=== PATIENT | female | born 1985 | race American Indian/Alaskan Native ===

== ENCOUNTER 2018-06-02 18:28 | Emergency (ER) | payer MEDICARE ==
[2018-06-02 19:37] VITALS: BP 136/89
== END 2018-06-02 21:50 | disposition left against medical advice (07) ==
LOC: ED 18:28
DX: K08.89 Other specified disorders of teeth and supporting structures (principal); Z53.21 Procedure and treatment not carried out due to patient leaving prior to being seen by health care provider

== ENCOUNTER 2018-08-06 14:35 | Emergency (ER) | payer MEDICARE ==
--- NOTE | 2018-08-06 15:39 | Emergency Department Report ---
ED Rash HPI - HPI Chief Complaint: Skin Rash Stated Complaint: RASH SCABBIES/HEADACHE/PAIN Time Seen by Provider: 08/06/18 15:03 Duration: 2 Days Location: Neck, Back, Abdomen, Upper Extremities, Lower Extremities Suspected Cause: Unknown Rash Symptoms: Yes Itching, Yes Myalgias (room), No Facial Swelling, No Tongue/Oral Swelling, No Breathing Difficulties, No Choking Sensation, No Wheezing/Dyspnea, No Peeling, No Blistering, No Fever, No Lightheaded, No Malaise Severity: moderate Other History: scabies exposure ED Review of Systems ROS: Stated complaint: RASH SCABBIES/HEADACHE/PAIN Other details as noted in HPI Constitutional: denies: chills, fever Eyes: denies: eye pain, eye discharge, vision change ENT: denies: ear pain, throat pain Respiratory: denies: cough, shortness of breath, wheezing Cardiovascular: denies: chest pain, palpitations Endocrine: no symptoms reported Gastrointestinal: denies: abdominal pain, nausea, diarrhea Genitourinary: denies: urgency, dysuria, discharge Musculoskeletal: denies: back pain, joint swelling, arthralgia Skin: rash Neurological: denies: headache, weakness, paresthesias Psychiatric: denies: anxiety, depression Hematological/Lymphatic: denies: easy bleeding, easy bruising ED Past Medical Hx - Past Medical History Hx Hypertension: Yes Hx Headaches / Migraines: Yes - Social History Smoking Status: Never Smoker Substance Use Type: None - Medications Home Medications: Home Medications Medication Instructions Recorded Confirmed Last Taken Type Docusate Sodium [Colace] 100 mg PO BID PRN #60 capsule 05/09/18 Unknown Rx Lactulose 10 gm PO DAILY PRN #150 ml 05/09/18 Unknown Rx NIFEdipine [Adalat cc] 30 mg PO DAILY #30 tablet.er 05/09/18 Unknown Rx Diphenhydramine HCl [Benadryl GEL] 118 ml TP QID PRN #1 bottle 08/06/18 Unknown Rx Permethrin 5% [Acticin 5% CREAM] 1 applicatio TP ONCE #1 tube 08/06/18 Unknown Rx diphenhydrAMINE [Benadryl CAP] 25 mg PO Q6HR PRN #30 capsule 08/06/18 Unknown Rx Rash Exam - Exam General: Vital signs noted. No distress. Alert and acting appropriately. HEENT: No Periorbital Edema, No Conjuctival Injection, No Chemosis, No Perioral Edema, No Tongue Edema, No Uvular Edema, No Compromised Airway, No Drooling Lungs: Yes Good Air Exchange (Normal Breath Sounds), No Wheezes, No Ronchi, No Stridor, No Cough, No Labored Respirations, No Retractions, No Use of Accessory Muscles, No Other Abnormal Lung Sounds Heart: Yes Regular, No Murmur Skin: Yes Urticarial Rash, Yes Maculopapular Rash, Yes Excoriations, Yes Erythema, Yes Encrustations, No Morbilliform rash, No Bulla(e), No Weeping, No Tenderness, No Edema Other: Positive: Abdomen Normal, Neurologic Normal, Musculoskeletal Normal ED Course Vital Signs 08/06/18 15:32 Pulse Rate 66 Respiratory 18 Rate Blood Pressure 115/70 [Right] O2 Sat by Pulse 99 Oximetry ED Medical Decision Making - Medical Decision Making pt rash constistent with scabies infestation. confirmed scabies with child plan permethrine cream , laundry linen, and mattress care pt verbalized agreement and understanding of same Critical care attestation.: If time is entered above; I have spent that time in minutes in the direct care of this critically ill patient, excluding procedure time. ED Disposition Clinical Impression: Scabies infestation Disposition: - TO HOME OR SELFCARE Is pt being admited?: No Does the pt Need Aspirin: No Condition: Stable Instructions: Scabies (ED) Prescriptions: Permethrin 5% [Acticin 5% CREAM] 1 applicatio TP ONCE #1 tube diphenhydrAMINE [Benadryl CAP] 25 mg PO Q6HR PRN #30 capsule PRN Reason: Itching Diphenhydramine HCl [Benadryl GEL] 118 ml TP QID PRN #1 bottle PRN Reason: Itching Referrals: SERGIO GANDHI MD [Primary Care Provider] - 3-5 Days Forms: Work/School Release Form(ED) Time of Disposition: 15:39
[2018-08-06 15:53] VITALS: BP 115/70
== END 2018-08-06 15:35 | disposition home or self-care (01) ==
LOC: ED 14:35
DX: B86 Scabies (principal); I10 Essential (primary) hypertension; G43.909 Migraine, unspecified, not intractable, without status migrainosus
CPT/HCPCS: 99282

== ENCOUNTER 2018-08-21 18:30 | Emergency (ER) | payer MEDICARE ==
[2018-08-21 18:41] VITALS: BP 122/89
--- NOTE | 2018-08-21 18:49 | Emergency Department Report ---
Blank Doc - Documentation Documentation: headache and acid reflux reflux. Suppose to prescription for acid reflux but h ave not started yet. Medication prescribed here. Headache on both sides of head. Tension. Blurred vision. SCHROEDER ongoing for 5 days. Previous was not as bad. LMP 08/09/2018. Mini Neuro- alert and oriented x 3, nad. facial symmetry. nl gate . nl speech. GCS 15 CV- RR. A/P Headache dyspepsia CT scan head urine ua,
[2018-08-21 20:31] LABS: Bacteria,Urine 1+ /HPF (Negative); Bilirubin,Urine NEG (Negative); Blood,Urine NEG (Negative); Color,Urine Yellow (Yellow); Mucus,Urine 3+ /HPF; Urobilinogen,Urine < 2.0 mg/dL (<2.0)
[2018-08-21 20:35] LABS: HCG Qualitative,Urine Negative (Negative)
[2018-08-21] MEDS ORDERED: ALUM-MAG HYDROX-SIMETH 200-200-20MG/5ML PO ONE (20:39)
[2018-08-21] MEDS ORDERED: PEPCID PO ONE (20:39)
[2018-08-21] MEDS ORDERED: TORADOL IM ONE (20:39)
[2018-08-21] MEDS ORDERED: LIDOCAINE VISCOUS 2% PO ONE (20:39)
--- NOTE | 2018-08-21 21:10 | Emergency Department Report ---
ED Headache HPI - General Chief Complaint: Headache Stated Complaint: HEADACHE/CHEST PAIN/HYPERTENSION/ACID REFLUX Time Seen by Provider: 08/21/18 18:43 Source: patient Exam Limitations: no limitations - History of Present Illness Timing/Duration: waxing and waning Quality: mild Head Injury Location: global Recent Head Trauma: no recent headache/trauma Modifying Factors: worse with: cold therapy, exposure to light, immobilization, medication, movement, rest, other Associated Symptoms: denies: denies symptoms, confusion, fatigue, facial pain, fever/chills, flushing, loss of consciousness, nausea/vomiting, nasal congestion, nasal drainage, numbness in legs/feet, rash, seizures, sinus infection, stiff neck, vision changes, weakness, other Allergies/Adverse Reactions: Allergies No Known Allergies Allergy (Unverified 05/08/18 21:57) Home Medications: Ambulatory Orders Butalb/Acetaminophen/Caffeine [Fioricet 50-300-40 mg CAP] 1 cap PO Q8HR PRN #10 cap 08/21/18 ED Review of Systems ROS: Stated complaint: HEADACHE/CHEST PAIN/HYPERTENSION/ACID REFLUX Other details as noted in HPI Comment: All other systems reviewed and negative Constitutional: denies: chills Eyes: denies: as per HPI Respiratory: denies: see HPI Cardiovascular: denies: palpitations Endocrine: denies: excessive sweating Gastrointestinal: denies: nausea Genitourinary: denies: urgency Musculoskeletal: denies: back pain Skin: denies: lesions Neurological: as per HPI, headache Psychiatric: denies: anxiety Hematological/Lymphatic: denies: easy bleeding ED Past Medical Hx - Past Medical History Previous Medical History?: Yes Hx Hypertension: Yes Hx GERD: Yes Hx Headaches / Migraines: Yes - Surgical History Past Surgical History?: No - Family History Family history: no significant - Social History Smoking Status: Never Smoker Substance Use Type: None - Medications Home Medications: Home Medications Medication Instructions Recorded Confirmed Last Taken Type Butalb/Acetaminophen/Caffeine 1 cap PO Q8HR PRN #10 cap 08/21/18 Unknown Rx [Fioricet 50-300-40 mg CAP] ED Physical Exam - General Limitations: No Limitations General appearance: alert, in no apparent distress - Head Head exam: Present: atraumatic, normocephalic - Eye Eye exam: Present: normal appearance, PERRL - ENT ENT exam: Present: mucous membranes moist - Neck Neck exam: Present: normal inspection - Respiratory Respiratory exam: Present: normal lung sounds bilaterally - Cardiovascular Cardiovascular Exam: Present: regular rate - GI/Abdominal GI/Abdominal exam: Present: soft, normal bowel sounds - Rectal Rectal exam: Present: deferred - Extremities Exam Extremities exam: Present: normal inspection, full ROM - Back Exam Back exam: Present: normal inspection, full ROM - Neurological Exam Neurological exam: Present: alert, oriented X3, CN II-XII intact, normal gait, reflexes normal. Absent: abnormal gait, motor sensory deficit - Psychiatric Psychiatric exam: Present: normal affect, normal mood - Skin Skin exam: Present: warm, dry, intact ED Course Vital Signs 08/21/18 18:40 Temperature 98.2 F Pulse Rate 75 Respiratory 18 Rate Blood Pressure 122/89 O2 Sat by Pulse 100 Oximetry ED Medical Decision Making - Radiology Data Radiology results: report reviewed, image reviewed CT NAP - Medical Decision Making CT NEG MEDICATED WITH RELIEF IN ER PLAYING ON PHONE ENTIRE ER STAY WILL DC HOME WITH NEURO FOLLOW UP Vital Signs 08/21/18 18:40 Temperature 98.2 F Pulse Rate 75 Respiratory 18 Rate Blood Pressure 122/89 O2 Sat by Pulse 100 Oximetry Labs 08/21/18 19:19 Urine Color Yellow Urine Turbidity Slightly-cloudy Urine pH 6.0 Ur Specific Cameron 1.035 H Urine Protein 100 mg/dl Urine Glucose (UA) Neg Urine Ketones Neg Urine Blood Neg Urine Nitrite Neg Urine Bilirubin Neg Urine Urobilinogen < 2.0 Ur Leukocyte Esterase Neg Urine WBC (Auto) 1.0 Urine RBC (Auto) 3.0 U Epithel Cells (Auto) 14.0 H Urine Bacteria (Auto) 1+ Urine Mucus 3+ Urine HCG, Qual Negative Critical care attestation.: If time is entered above; I have spent that time in minutes in the direct care of this critically ill patient, excluding procedure time. ED Disposition Clinical Impression: Headache Disposition: DC-01 TO HOME OR SELFCARE Is pt being admited?: No Does the pt Need Aspirin: No Condition: Stable Instructions: Acute Headache (ED) Additional Instructions: HYDRATE WELL WITH WATER FOLLOW UP PCP IF PERSISTS ACTIVITY TOLERATED DIET TOLERATED MED ORDERED Referrals: RYAN DRAKE MD [Primary Care Provider] - 3-5 Days LEXY HUYNH MD [Referring] - 3-5 Days Time of Disposition: :47
--- NOTE | 2018-08-21 21:31 | Cat Scan Report ---
PROCEDURE: CT HEAD/BRAIN WO CON TECHNIQUE: Computerized tomography of the head was performed without contrast material. CT DOSE LENGTH PRODUCT: 899.6 mGycm HISTORY: headache, blurred vision COMPARISONS: None . FINDINGS: Skull and scalp: Normal . Paranasal sinuses: Normal . Ventricles and subarachnoid spaces: Normal . Cerebrum: No evidence of hemorrhage, acute infarction or mass . Cerebellum and brainstem: No evidence of hemorrhage, acute infarction or mass . Vasculature: Normal . Other: None . ASPECTS: 10 IMPRESSION: Normal Examination . This document is electronically signed by Tr Agrawal MD., August 21 2018 09:29:06 PM ET
== END 2018-08-21 22:00 | disposition home or self-care (01) ==
LOC: ED 18:30
DX: G43.909 Migraine, unspecified, not intractable, without status migrainosus (principal); I10 Essential (primary) hypertension; K21.9 Gastro-esophageal reflux disease without esophagitis
CPT/HCPCS: 70450; 81001; 81025; 96372; 99284; J1885

== ENCOUNTER 2018-08-25 10:02 | Emergency (ER) | payer MEDICARE ==
[2018-08-25] MEDS ORDERED: ASPIRIN PO ONE (10:14)
--- NOTE | 2018-08-25 10:32 | XRay Report ---
Single view chest: History: Chest pain. Findings: Normal cardiomediastinal silhouette. Trachea is midline. No consolidation, pneumothorax or pleural effusion. Impression: No acute cardiopulmonary findings.
[2018-08-25 10:45] LABS: Basophils % (Auto) 0.7 % (0.0-1.8); Eosinophils # (Auto) 0.1 K/mm3 (0.0-0.4); Eosinophils % (Auto) 2.3 % (0.0-4.3); Hematocrit 32.4 % (30.3-42.9); Hemoglobin 10.4 gm/dl (10.1-14.3); Lymphocytes # (Auto) 1.5 K/mm3 (1.2-5.4); Lymphocytes % (Auto) 25.2 % (13.4-35.0); Mean Corpuscular HGB Conc 32 % (30-34); Mean Corpuscular Volume 76 fl (79-97); Monocytes # (Auto) 0.3 K/mm3 (0.0-0.8); Monocytes % (Auto) 5.1 % (0.0-7.3); Platelet Count 325 K/mm3 (140-440); Red Blood Count 4.29 M/mm3 (3.65-5.03); Red Cell Distribution Width 17.3 % (13.2-15.2)
[2018-08-25 11:03] LABS: BUN/Creatinine Ratio 20; Blood Urea Nitrogen 10 mg/dL (7-17); Calcium 9.1 mg/dL (8.4-10.2); Hemolysis Index 1
[2018-08-25] MEDS ORDERED: TYLENOL #3 PO ONE (11:27)
[2018-08-25] MEDS ORDERED: PEPCID PO ONE (11:27)
--- NOTE | 2018-08-25 11:32 | Emergency Department Report ---
ED Abdominal Pain HPI - General Chief Complaint: Chest Pain Stated Complaint: ACID REFLUX CHEST PAIN Time Seen by Provider: 08/25/18 10:43 Source: patient Mode of arrival: Ambulatory Limitations: No Limitations - History of Present Illness Initial Comments: This is a 33-year-old female nontoxic, well nourished in appearance, no acute signs of distress presents to the ED with c/o of nausea and vomiting and epigastric abdominal pain 1 day. Patient describes vomiting as food content and yellow gastric acid. Patient describes abdominal pain as burning sensation that travels and radiates to epigastric chest area. Patient does state that she has history of GERD and symptoms are currently similar. Patient stated that the burning sensation causes patient to have some chest discomfort. Patient denies short of breath, fever, chills, headache, stiff neck, numbness or tingling. Patient denies any diarrhea or constipation. Patient denies any recent travels. Patient denies any drug allergies or significant past medical history. MD Complaint: abdominal pain (epigastgric), other (chest discomfort) -: days(s) (1) Location: epigastric Radiation: chest Migration to: no migration Severity: mild Severity scale (0 -10): 3 Quality: burning Consistency: intermittent Improves With: rest Worsens With: other (laying up) Associated Symptoms: nausea, vomiting. denies: diarrhea, fever, chills, constipation, dysuria, hematemesis, hematochezia, melena, hematuria, anorexia, syncope - Related Data Previous Rx's Medication Instructions Recorded Last Taken Type Butalb/Acetaminophen/Caffeine 1 cap PO Q8HR PRN #10 cap 08/21/18 Unknown Rx [Fioricet 50-300-40 mg CAP] Ibuprofen [Motrin] 600 mg PO Q8H PRN #20 tablet 08/25/18 Unknown Rx Omeprazole 40 mg PO DAILY #30 capsule. 08/25/18 Unknown Rx Allergies Allergy/AdvReac Type Severity Reaction Status Date / Time carrot Allergy Anaphylaxis Verified 08/25/18 10:15 pollen extracts Allergy Itching Verified 08/25/18 10:15 ED Review of Systems ROS: Stated complaint: ACID REFLUX CHEST PAIN Other details as noted in HPI Constitutional: denies: chills, fever Eyes: denies: eye pain, eye discharge, vision change ENT: denies: ear pain, throat pain Respiratory: denies: cough, shortness of breath, wheezing Cardiovascular: chest pain. denies: palpitations Endocrine: no symptoms reported Gastrointestinal: abdominal pain, nausea, vomiting. denies: diarrhea Genitourinary: denies: urgency, dysuria, discharge Musculoskeletal: denies: back pain, joint swelling, arthralgia Skin: denies: rash, lesions Neurological: denies: headache, weakness, paresthesias Psychiatric: denies: anxiety, depression Hematological/Lymphatic: denies: easy bleeding, easy bruising ED Past Medical Hx - Past Medical History Hx Hypertension: Yes Hx GERD: Yes Hx Headaches / Migraines: Yes - Social History Smoking Status: Never Smoker Substance Use Type: None - Medications Home Medications: Home Medications Medication Instructions Recorded Confirmed Last Taken Type Butalb/Acetaminophen/Caffeine 1 cap PO Q8HR PRN #10 cap 08/21/18 Unknown Rx [Fioricet 50-300-40 mg CAP] Ibuprofen [Motrin] 600 mg PO Q8H PRN #20 tablet 08/25/18 Unknown Rx Omeprazole 40 mg PO DAILY #30 capsule. 08/25/18 Unknown Rx ED Physical Exam - General Limitations: No Limitations General appearance: alert, in no apparent distress - Head Head exam: Present: atraumatic, normocephalic - Eye Eye exam: Present: normal appearance - Neck Neck exam: Present: normal inspection, full ROM. Absent: tenderness, meningismus, lymphadenopathy - Respiratory Respiratory exam: Present: normal lung sounds bilaterally. Absent: respiratory distress, wheezes, rales, rhonchi, stridor, chest wall tenderness, accessory muscle use, decreased breath sounds, prolonged expiratory - Cardiovascular Cardiovascular Exam: Present: regular rate, normal rhythm, normal heart sounds. Absent: bradycardia, tachycardia, irregular rhythm, systolic murmur, diastolic murmur, rubs, gallop - GI/Abdominal GI/Abdominal exam: Present: soft, normal bowel sounds. Absent: distended, tenderness, guarding, rebound, rigid, diminished bowel sounds - Expanded GI/Abdominal Exam Expanded GI/Abdominal exam: Absent: psoas sign, Moreno's sign, Rovsing's sign, tenderness at Mcburney's Point, ascites - Extremities Exam Extremities exam: Present: normal inspection, full ROM - Back Exam Back exam: Present: normal inspection, full ROM. Absent: tenderness, CVA tenderness (R), CVA tenderness (L), muscle spasm, paraspinal tenderness, vertebral tenderness, rash noted - Neurological Exam Neurological exam: Present: alert, oriented X3 - Psychiatric Psychiatric exam: Present: normal affect, normal mood - Skin Skin exam: Present: warm, dry, intact, normal color. Absent: rash ED Course Vital Signs 08/25/18 10:20 Temperature 98.7 F Pulse Rate 81 Respiratory 16 Rate Blood Pressure 139/91 [Right] O2 Sat by Pulse 99 Oximetry - Reevaluation(s) Reevaluation #1: 08/25/18 11:32 Patient is speaking in full sentences with no signs of distress noted. ED Medical Decision Making - Lab Data Result diagrams: 08/25/18 10:28 08/25/18 10:28 - Medical Decision Making This is a 33-year-old female that presents with GERD. Patient is stable and was examined by me. There is slight abdominal tenderness. EKG normal sinus rhythm with no significant changes in ST. Chest xray dictated by the radiologist. Patient is notified of the Xray report with no questions noted. Labs within normal limits. Negative troponin. UA obtained. Vital signs are stable prior to discharge. PAtient received medical treatment in the ED which patient stated symptoms has resovled and subsided. A by mouth challenge has been obtained and patient tolerated well with no nausea vomiting. Patient was also instructed to Follow-up with a primary care/instructor painting doctor in 3-5 days or if symptoms worsen and continue return to emergency room as soon as possible. At time of discharge, the patient does not seem toxic or ill in appearance. No acute signs of distress noted. Patient agrees to discharge treatment plan of care. No further questions noted by the patient. Critical care attestation.: If time is entered above; I have spent that time in minutes in the direct care of this critically ill patient, excluding procedure time. ED Disposition Clinical Impression: Atypical chest pain GERD (gastroesophageal reflux disease) Qualifiers: Esophagitis presence: esophagitis presence not specified Qualified Code(s): K21.9 - Gastro-esophageal reflux disease without esophagitis Disposition: TO HOME OR SELFCARE Is pt being admited?: No Does the pt Need Aspirin: No Condition: Stable Instructions: Chest Pain (ED), Gastroesophageal Reflux in Children (ED) Additional Instructions: Follow-up with a primary care/instructor painting doctor in 2 days or if symptoms worsen and continue return to emergency room as soon as possible. Prescriptions: Ibuprofen [Motrin] 600 mg PO Q8H PRN #20 tablet PRN Reason: Pain Omeprazole 40 mg PO DAILY #30 capsule.dr Referrals: SHEY PERRYKINDERHOOK MD SAL [Primary Care Provider] - 3-5 Days PRIMARY CAREMD [Referring] - 3-5 Days CONNIE REYNOLDS MD [Staff Physician] - 3-5 Days RAUL SUAREZ MD [Staff Physician] - 3-5 Days [facility] [Outside] - 3-5 Days Forms: Work/School Release Form(ED)
[2018-08-25] MEDS ORDERED: BENTYL PO ONE (12:00)
[2018-08-25 12:16] LABS: Alanine Aminotransferase 7 units/L (7-56); Albumin 4.5 g/dL (3.9-5)
[2018-08-25 12:21] LABS: Bilirubin,Direct < 0.2 mg/dL (0-0.2)
[2018-08-25 14:18] LABS: Bacteria,Urine 1+ /HPF (Negative); Bilirubin,Urine NEG (Negative); Blood,Urine NEG (Negative); Color,Urine Yellow (Yellow); Mucus,Urine 2+ /HPF; Urobilinogen,Urine < 2.0 mg/dL (<2.0)
[2018-08-25 14:20] LABS: HCG Qualitative,Urine Negative (Negative)
--- NOTE | 2018-08-25 15:13 | XRay Report ---
Abdomen 2 views: History: Epigastric pain. Findings: Stool in colon. No bowel distention. No radiopaque calculus or abnormal calcification. Impression: Essentially negative abdomen. Stool in colon.
[2018-08-25 15:55] VITALS: BP 140/90
== END 2018-08-25 15:54 | disposition home or self-care (01) ==
LOC: ED 10:02
DX: R07.89 Other chest pain (principal); K21.9 Gastro-esophageal reflux disease without esophagitis; R11.2 Nausea with vomiting, unspecified; I10 Essential (primary) hypertension; G43.909 Migraine, unspecified, not intractable, without status migrainosus; Z91.018 Allergy to other foods
CPT/HCPCS: 36415; 71045; 74019; 80048; 80076; 81001; 81025; 83690; 84484; 85025; 93005; 93010; 99284

== ENCOUNTER 2018-09-24 07:16 | Emergency (ER) | payer MEDICARE ==
[2018-09-24] MEDS ORDERED: PEPCID IV ONE ×2 (07:45→14:31)
[2018-09-24] MEDS ORDERED: ZOFRAN IV ONE ×2 (07:45→11:42)
[2018-09-24] MEDS ORDERED: MORPHINE IV ONE (07:45)
[2018-09-24] MEDS ORDERED: NACL 0.9% 1000 ML 1,000 ML IV ONE (08:00)
--- NOTE | 2018-09-24 08:00 | Emergency Department Report ---
ED Abdominal Pain HPI - General Chief Complaint: Chest Pain Stated Complaint: CHEST PAIN/GERD Time Seen by Provider: 09/24/18 07:35 Source: patient, EMS, old records reviewed (patient was here on September 22 but left prior to M.D. evaluation. Previous visits for GERD) Mode of arrival: Stretcher Limitations: No Limitations - History of Present Illness Initial Comments: 33-year-old female with a past medical history GERD, migraines, and hypertension presents complaining of epigastric pain radiating to the chest since this a.m. Patient woke up with the symptoms and developed nausea with several episodes of non-bloody vomitus. She describes epigastric pain related to the chest as a burning stabbing pain, worse with palpation, and without alleviating factors. Patient states that several weeks ago she was at [facility] and was told that her gallbladder wall was thickened/infected. She declined surgery. She states she was discharged and did not sign out AMA and was not prescribed any antibiotics. Instead she was to follow-up with the specialist but she missed her appointment. Patient denies fever, melena, hematochezia, hematemesis, or diarrhea. She denies previous abdominal surgeries. Her symptoms feel like her GERD symptoms in the past. She is not taking any reflux/GERD medication - Related Data Previous Rx's Medication Instructions Recorded Last Taken Type Butalb/Acetaminophen/Caffeine 1 cap PO Q8HR PRN #10 cap 08/21/18 Unknown Rx [Fioricet 50-300-40 mg CAP] Ibuprofen [Motrin] 600 mg PO Q8H PRN #20 tablet 08/25/18 Unknown Rx Docusate Sodium [Colace] 100 mg PO BID PRN #20 capsule 09/24/18 Unknown Rx Ferrous Sulfate [Ferrous Sulfate 324 mg PO DAILY #30 tablet. 09/24/18 Unknown Rx 324 MG] HYDROcodone/APAP 5-325 [[place] 1 each PO Q6HR PRN #14 tablet 09/24/18 Unknown Rx 5/325] Omeprazole 40 mg PO DAILY #30 capsule. 09/24/18 Unknown Rx Ondansetron [Zofran Odt] 4 mg PO Q8HR PRN #20 tab.rapdis 09/24/18 Unknown Rx Allergies Allergy/AdvReac Type Severity Reaction Status Date / Time carrot Allergy Anaphylaxis Verified 08/25/18 10:15 pollen extracts Allergy Itching Verified 08/25/18 10:15 ED Review of Systems ROS: Stated complaint: CHEST PAIN/GERD Other details as noted in HPI Comment: All other systems reviewed and negative ED Past Medical Hx - Past Medical History Previous Medical History?: Yes Hx Hypertension: Yes Hx GERD: Yes Hx Headaches / Migraines: Yes - Social History Smoking Status: Never Smoker - Medications Home Medications: Home Medications Medication Instructions Recorded Confirmed Last Taken Type Butalb/Acetaminophen/Caffeine 1 cap PO Q8HR PRN #10 cap 08/21/18 Unknown Rx [Fioricet 50-300-40 mg CAP] Ibuprofen [Motrin] 600 mg PO Q8H PRN #20 tablet 08/25/18 Unknown Rx Docusate Sodium [Colace] 100 mg PO BID PRN #20 capsule 09/24/18 Unknown Rx Ferrous Sulfate [Ferrous Sulfate 324 mg PO DAILY #30 tablet. 09/24/18 Unknown Rx 324 MG] HYDROcodone/APAP 5-325 [[place] 1 each PO Q6HR PRN #14 tablet 09/24/18 Unknown Rx 5/325] Omeprazole 40 mg PO DAILY #30 capsule. 09/24/18 Unknown Rx Ondansetron [Zofran Odt] 4 mg PO Q8HR PRN #20 tab.rapdis 09/24/18 Unknown Rx ED Physical Exam - General Limitations: No Limitations - Other Other exam information: General: No limitations, patient is alert in no acute distress Head exam: Atraumatic, normocephalic Eyes exam: Normal appearance, pupils equal reactive to light, extraocular movements intact, nonicteric sclera ENT: Moist mucous membrane, normal oropharynx Neck exam: Normal inspection, full range of motion, no meningismus nontender Respiratory exam: Clear to auscultation bilateral, no wheezes, rales, crackles Cardiovascular: Normal rate and rhythm, normal heart sounds Abdomen: Soft, nondistended, epigastric tenderness, right upper quadrant tenderness, with normal bowel sounds, no rebound, or guarding Extremity: Full range of motion normal inspection no deformity Back: Normal Inspection, full range of motion, no tenderness Neurologic: Alert, oriented x3, cranial nerves intact, no motor or sensory deficit Psychiatric: normal affect, normal mood Skin: Warm, dry, intact ED Course Vital Signs 09/24/18 09/24/18 09/24/18 07:25 07:30 07:46 Temperature Pulse Rate 127 H Respiratory 22 Rate Blood Pressure 151/93 151/93 Blood Pressure [Right] O2 Sat by Pulse 99 99 100 Oximetry 09/24/18 09/24/18 09/24/18 08:00 08:02 08:51 Temperature 98.8 F Pulse Rate Respiratory 16 22 Rate Blood Pressure 120/71 151/93 Blood Pressure [Right] O2 Sat by Pulse 99 Oximetry 09/24/18 09/24/18 09/24/18 09:00 09:30 10:00 Temperature Pulse Rate Respiratory 17 16 17 Rate Blood Pressure 151/93 124/68 114/76 Blood Pressure [Right] O2 Sat by Pulse 99 Oximetry 09/24/18 09/24/18 09/24/18 10:30 11:05 13:42 Temperature 98.1 F 98 F Pulse Rate 63 59 L Respiratory 17 17 15 Rate Blood Pressure 122/77 Blood Pressure 131/82 125/72 [Right] O2 Sat by Pulse 99 100 99 Oximetry - Reevaluation(s) Reevaluation #1: 09/24/18 12:45 pt prepped for d/c but continues to have pain despite tx, ct ordered ED Medical Decision Making - Lab Data Result diagrams: 09/24/18 07:49 09/24/18 07:51 Lab Results 09/24/18 09/24/18 09/24/18 Range/Units 07:46 07:49 07:51 WBC 6.8 (4.5-11.0) K/mm3 RBC 4.12 (3.65-5.03) M/mm3 Hgb 9.9 L (10.1-14.3) gm/dl Hct 31.5 (30.3-42.9) % MCV 76 L (79-97) fl MCH 24 L (28-32) pg MCHC 32 (30-34) % RDW 17.2 H (13.2-15.2) % Plt Count 258 (140-440) K/mm3 Lymph % (Auto) 28.5 (13.4-35.0) % [place] % (Auto) 5.6 (0.0-7.3) % Eos % (Auto) 3.1 (0.0-4.3) % Baso % (Auto) 1.1 (0.0-1.8) % Lymph # 1.9 (1.2-5.4) K/mm3 [place] # 0.4 (0.0-0.8) K/mm3 Eos # 0.2 (0.0-0.4) K/mm3 Baso # 0.1 (0.0-0.1) K/mm3 Seg Neutrophils % 61.7 (40.0-70.0) % Seg Neutrophils # 4.2 (1.8-7.7) K/mm3 Sodium 139 (137-145) mmol/L Potassium 3.5 L (3.6-5.0) mmol/L Chloride 103.2 (98-107) mmol/L Carbon Dioxide 25 (22-30) mmol/L Anion Gap 14 mmol/L BUN 8 (7-17) mg/dL Creatinine 0.6 L (0.7-1.2) mg/dL Estimated GFR > 60 ml/min BUN/Creatinine Ratio 13 % Glucose 121 H (65-100) mg/dL Calcium 8.7 (8.4-10.2) mg/dL Total Bilirubin 0.40 (0.1-1.2) mg/dL AST 59 H (5-40) units/L ALT 25 (7-56) units/L Alkaline Phosphatase 71 (35-129) units/L Troponin T (0.00-0.029) ng/mL Total Protein 7.5 (6.3-8.2) g/dL Albumin 4.0 (3.9-5) g/dL Albumin/Globulin Ratio 1.1 % Lipase 30 (13-60) units/L Urine Color [place] (Yellow) Urine Turbidity Cloudy (Clear) Urine pH 5.0 (5.0-7.0) Ur Specific [place] 1.028 (1.003-1.030) Urine Protein 100 mg/dl (Negative) mg/dL Urine Glucose (UA) Neg (Negative) mg/dL Urine Ketones Neg (Negative) mg/dL Urine Blood Neg (Negative) Urine Nitrite Neg (Negative) Urine Bilirubin Neg (Negative) Urine Urobilinogen 2.0 (<2.0) mg/dL Ur Leukocyte Esterase Neg (Negative) Urine WBC (Auto) 3.0 (0.0-6.0) /HPF Urine RBC (Auto) 5.0 (0.0-6.0) /HPF U Epithel Cells (Auto) 17.0 H (0-13.0) /HPF Urine Bacteria (Auto) 1+ (Negative) /HPF Urine Mucus 3+ /HPF Urine HCG, Qual Negative (Negative) 09/24/18 09/24/18 Range/Units 07:51 11:12 WBC (4.5-11.0) K/mm3 RBC (3.65-5.03) M/mm3 Hgb (10.1-14.3) gm/dl Hct (30.3-42.9) % MCV (79-97) fl MCH (28-32) pg MCHC (30-34) % RDW (13.2-15.2) % Plt Count (140-440) K/mm3 Lymph % (Auto) (13.4-35.0) % [place] % (Auto) (0.0-7.3) % Eos % (Auto) (0.0-4.3) % Baso % (Auto) (0.0-1.8) % Lymph # (1.2-5.4) K/mm3 [place] # (0.0-0.8) K/mm3 Eos # (0.0-0.4) K/mm3 Baso # (0.0-0.1) K/mm3 Seg Neutrophils % (40.0-70.0) % Seg Neutrophils # (1.8-7.7) K/mm3 Sodium (137-145) mmol/L Potassium (3.6-5.0) mmol/L Chloride (98-107) mmol/L Carbon Dioxide (22-30) mmol/L Anion Gap mmol/L BUN (7-17) mg/dL Creatinine (0.7-1.2) mg/dL Estimated GFR ml/min BUN/Creatinine Ratio % Glucose (65-100) mg/dL Calcium (8.4-10.2) mg/dL Total Bilirubin (0.1-1.2) mg/dL AST (5-40) units/L ALT (7-56) units/L Alkaline Phosphatase (35-129) units/L Troponin T < 0.010 < 0.010 (0.00-0.029) ng/mL Total Protein (6.3-8.2) g/dL Albumin (3.9-5) g/dL Albumin/Globulin Ratio % Lipase (13-60) units/L Urine Color (Yellow) Urine Turbidity (Clear) Urine pH (5.0-7.0) Ur Specific [place] (1.003-1.030) Urine Protein (Negative) mg/dL Urine Glucose (UA) (Negative) mg/dL Urine Ketones (Negative) mg/dL Urine Blood (Negative) Urine Nitrite (Negative) Urine Bilirubin (Negative) Urine Urobilinogen (<2.0) mg/dL Ur Leukocyte Esterase (Negative) Urine WBC (Auto) (0.0-6.0) /HPF Urine RBC (Auto) (0.0-6.0) /HPF U Epithel Cells (Auto) (0-13.0) /HPF Urine Bacteria (Auto) (Negative) /HPF Urine Mucus /HPF Urine HCG, Qual (Negative) - EKG Data -: EKG Interpreted by Tx EKG shows normal: sinus rhythm, axis (qrs 66), QRS complexes (qrsd 90), ST-T waves (no stemi/t inv) Rate: normal (94) - EKG Data When compared to previous EKG there are: no significant change 09/24/18 12:27 Repeat EKG sinus bradycardia rate [address] elevation GA. - Radiology Data Radiology results: report reviewed ULTRASOUND ABDOMEN INDICATION: RUQ pain, epigastric pain, vomiting. COMPARISON: None similar. FINDINGS: Abdominal sonography suggests mild diffuse hepatic coarsening, slightly echogenic. Right hepatic lobe approximately 19 cm in midclavicular length. No definite focal suspicious lesions or biliary dilatation. No gallstones, pericholecystic fluid or positive sonographic Moreno's sign. Gallbladder wall thickness is 2.9 mm. A small junctional fold towards the gallbladder neck possible. CBD caliber is 4.5 mm. Homogenous spleen, 11.2 cm in length. No ascites. Normal imaged pancreas, aorta and IVC. No hydronephrosis. Right kidney is 11.7 x 4.9 x 5.7 cm with cortical thickness of 1.7 cm. Left kidney estimated at 10.4 x 4.7 x 5.3 cm with cortical thickness 1.9 cm. Approximately 4 mm tiny echogenic left interpolar possible calcifications as on images 46-47, one cortical and the other at the corticomedullary junction. CONCLUSION: Subtle prominent/enlarged possibly fatty liver and few other incidental findings without acute abdominal sonographic abnormality, as described. Please correlate. CT abd/pelvis IV contrast: Mildly prominent/enlarged liver similar to a sono gram. Suspicion with [place]-portal edema/subtle hepatitis not entirely excluded in the appropriate setting, amongst others. A few incidental findings such as distal esophageal prominent/thickening and a tiny nonobstructive right renal renal calculus - Medical Decision Making Epigastric pain similar to GERD in the past Mild anemia appears to be chronic and unchanged compared to previous value Patient denies melena Patient ultrasound without acute finding PO potassium for mild hypokalemia provided Patient be discharged on medications for GERD and GI follow-up would be e ncouraged Iron tablets were also be prescribed with pain medications EKG and troponin unchanged/negative 2 ct results reviewed plan to d/c home, once again follow up encouraged - Differential Diagnosis GERD, PUD, cholecystitis, biliary colic, pancreatitis, GA Critical Care Time: No Critical care attestation.: If time is entered above; I have spent that time in minutes in the direct care of this critically ill patient, excluding procedure time. ED Disposition Clinical Impression: GERD (gastroesophageal reflux disease), Vomiting, Epigastric pain, Anemia Disposition: TO HOME OR SELFCARE Is pt being admited?: No Does the pt Need Aspirin: No Condition: Stable Instructions: Hypokalemia (ED), Gastroesophageal Reflux Disease (ED), Acute Nausea and Vomiting (ED), Anemia (ED) Additional Instructions: Take the medication as prescribed. Follow up with your doctor or the clinic/doctor provided. Return if symptoms worsen as indicated by your discharge instructions Prescriptions: Docusate Sodium [Colace] 100 mg PO BID PRN #20 capsule PRN Reason: Constipation Ferrous Sulfate [Ferrous Sulfate 324 MG] 324 mg PO DAILY #30 tablet. HYDROcodone/APAP 5-325 [[place] 5/325] 1 each PO Q6HR PRN #14 tablet PRN Reason: Pain Omeprazole 40 mg PO DAILY #30 capsule. Ondansetron [Zofran Odt] 4 mg PO Q8HR PRN #20 tab.rapdis PRN Reason: Nausea And Vomiting Referrals: SERGIO GANDHI MD [Primary Care Provider] - 3-5 Days (primary care doctor ) YEMI DEE MD [Staff Physician] - 3-5 Days (GI doctor ) Time of Disposition: 15:17
[2018-09-24 08:06] LABS: Basophils # (Auto) 0.1 K/mm3 (0.0-0.1); Basophils % (Auto) 1.1 % (0.0-1.8); Eosinophils # (Auto) 0.2 K/mm3 (0.0-0.4); Eosinophils % (Auto) 3.1 % (0.0-4.3); Hematocrit 31.5 % (30.3-42.9); Hemoglobin 9.9 gm/dl (10.1-14.3); Lymphocytes # (Auto) 1.9 K/mm3 (1.2-5.4); Lymphocytes % (Auto) 28.5 % (13.4-35.0); Mean Corpuscular HGB Conc 32 % (30-34); Mean Corpuscular Volume 76 fl (79-97); Monocytes # (Auto) 0.4 K/mm3 (0.0-0.8); Monocytes % (Auto) 5.6 % (0.0-7.3); Platelet Count 258 K/mm3 (140-440); Red Blood Count 4.12 M/mm3 (3.65-5.03); Red Cell Distribution Width 17.2 % (13.2-15.2)
[2018-09-24 08:15] LABS: Bacteria,Urine 1+ /HPF (Negative); Bilirubin,Urine NEG (Negative); Blood,Urine NEG (Negative); Color,Urine Amber (Yellow); Mucus,Urine 3+ /HPF
[2018-09-24 08:19] LABS: HCG Qualitative,Urine Negative (Negative)
[2018-09-24 08:27] LABS: Alanine Aminotransferase 25 units/L (7-56); BUN/Creatinine Ratio 13; Blood Urea Nitrogen 8 mg/dL (7-17); Calcium 8.7 mg/dL (8.4-10.2); Hemolysis Index 9
[2018-09-24] MEDS ORDERED: LIDOCAINE VISCOUS 2% PO ONE (09:28)
[2018-09-24] MEDS ORDERED: ALUM-MAG HYDROX-SIMETH 200-200-20MG/5ML PO ONE (09:28)
--- NOTE | 2018-09-24 09:42 | Ultrasound Report ---
ULTRASOUND ABDOMEN INDICATION: RUQ pain, epigastric pain, vomiting. COMPARISON: None similar. FINDINGS: Abdominal sonography suggests mild diffuse hepatic coarsening, slightly echogenic. Right hepatic lobe approximately 19 cm in midclavicular length. No definite focal suspicious lesions or biliary dilatation. No gallstones, pericholecystic fluid or positive sonographic Moreno's sign. Gallbladder wall thickness is 2.9 mm. A small junctional fold towards the gallbladder neck possible. CBD caliber is 4.5 mm. Homogenous spleen, 11.2 cm in length. No ascites. Normal imaged pancreas, aorta and IVC. No hydronephrosis. Right kidney is 11.7 x 4.9 x 5.7 cm with cortical thickness of 1.7 cm. Left kidney estimated at 10.4 x 4.7 x 5.3 cm with cortical thickness 1.9 cm. Approximately 4 mm tiny echogenic left interpolar possible calcifications as on images 46-47, one cortical and the other at the corticomedullary junction. CONCLUSION: Subtle prominent/enlarged possibly fatty liver and few other incidental findings without acute abdominal sonographic abnormality, as described. Please correlate. Thank you for the opportunity to participate in this patient's care.
[2018-09-24] MEDS ORDERED: NORCO 5/325 PO ONE (12:11)
[2018-09-24] MEDS ORDERED: DILAUDID IV ONE (12:13)
[2018-09-24] MEDS ORDERED: K-DUR PO ONE (12:28)
[2018-09-24 13:42] VITALS: BP 125/72
[2018-09-24] MEDS ORDERED: BENADRYL IV ONE (14:23)
[2018-09-24] MEDS ORDERED: REGLAN IV ONE (14:23)
[2018-09-24] MEDS ORDERED: PROTONIX IV ONE (14:27)
--- NOTE | 2018-09-24 14:48 | Cat Scan Report ---
CT ABDOMEN AND PELVIS WITH CONTRAST INDICATION: Epigastric pain, nausea, vomiting. COMPARISON: Abdomen ultrasound from earlier today. FINDINGS: Abdomen and pelvis CT performed following intravenous administration of 100 cc of Omnipaque 300. LUNG BASES: Top normal heart size. Nonspecific distal esophageal wall prominence/thickening, not excluded for gastroesophageal reflux and/or hiatal hernia, amongst others. ABDOMEN: Right hepatic lobe 19.5 cm in midclavicular length. Subtle periportal hypodensity/edema not entirely excluded. Patent veins. No radiopaque gallstones. Otherwise unremarkable spleen, pancreas, adrenals, aorta and IVC. No hydronephrosis. A tiny 3 mm nonobstructing right interpolar calculus, axial image 74, series 2. A 4 mm indeterminate right lower renal cortical hypodensity as on axial image 89. No ascites or size significant adenopathy. Nonopacified GI tract valuation limited, though grossly nonobstructive. Mild stool throughout colon/possible constipation. PELVIS: Grossly unremarkable/physiologic nonopacified urinary bladder, rectosigmoid, uterus and adnexa/ovaries with small physiologic pelvic free fluid measuring 20 HU as on axial image 159, series 2. Mild L5-S1 degenerative changes with slight endplate irregularity and sclerosis involving lower half of L5 vertebral body. Slight bilateral acetabular spurring/prominence also possible. CONCLUSION: 1. Mildly prominent/enlarged liver, similar to sonographic suspicion with slight periportal edema/subtle hepatitis not entirely excluded in an appropriate setting, amongst others. 2. Few other incidental findings as distal esophageal prominence/thickening and a tiny nonobstructing right renal calculus. Thank you for the opportunity to participate in this patient's care.
== END 2018-09-24 16:03 | disposition home or self-care (01) ==
LOC: ED 07:16
DX: K21.9 Gastro-esophageal reflux disease without esophagitis (principal); D64.9 Anemia, unspecified; I10 Essential (primary) hypertension; G43.909 Migraine, unspecified, not intractable, without status migrainosus
CPT/HCPCS: 36415; 74177; 76700; 80053; 81001; 81025; 83690; 84484; 85025; 93005; 93010; 96361; 96374; 96375; 96376; 99284; J1170; J1200; J2270; J2405; J2765; J7030; Q9967

== ENCOUNTER 2018-10-31 12:23 | Emergency (ER) | payer MEDICARE ==
[2018-10-31 12:30] VITALS: BP 129/75
--- NOTE | 2018-10-31 12:30 | Emergency Department Report ---
Blank Doc - Documentation Documentation: This is a 33-year-old female that presents with vaginal discharge and sore thr oat. Also has some dysuria. This initial assessment/diagnostic orders/clinical plan/treatment(s) is/are subject to change based on patient's health status, clinical progression and re- assessment by fellow clinical providers in the ED. Further treatment and workup at subsequent clinical providers discretion. Patient/guardians urged not to elope from the ED as their condition may be serious if not clinically assessed and managed. Initial orders include: 1- Patient sent to [facility] for further evaluation and treatment 2- strep swab 3- UA 4- wet prep/GC swabs to be done
[2018-10-31 13:00] LABS: Bilirubin,Urine NEG (Negative); Blood,Urine NEG (Negative); Color,Urine Yellow (Yellow); Mucus,Urine 2+ /HPF; Protein,Urine <15 mg/dL mg/dL (Negative); Urobilinogen,Urine < 2.0 mg/dL (<2.0)
[2018-10-31 13:02] LABS: HCG Qualitative,Urine Negative (Negative)
--- NOTE | 2018-10-31 14:46 | Emergency Department Report ---
ED Female HPI - General Chief complaint: Sore Throat Stated complaint: SORE THROAT/VAGINA ISSUES Time Seen by Provider: 10/31/18 12:29 Source: patient Mode of arrival: Ambulatory Limitations: No Limitations - History of Present Illness Initial comments: This is a 33-year-old female who presents to the emergency room with a sore throat and vaginal discharge for 3 days. Patient reports foul- smelling vaginal discharge, dysuria, and vaginal discomfort. Patient states she had unprotected intercourse with her but she caught him cheating on her and she may possibly have an STD. Last menstrual period was 10/24/2018, 86 miscarriages. MD Complaint: vaginal discharge, possible STD, other (sore throat) Onset/Timin -: days(s) Severity: moderate Severity scale (0 -10): 7 Quality: aching Consistency: intermittent Improves with: none Worsens with: other (eating) Are you Now?: No Last Menstrual Period: 10/24/18 EDC: 07/31/19 Associated Symptoms: vaginal discharge, dysuria. denies: vaginal bleeding, abdominal pain, nausea/vomiting, fever/chills, headaches, loss of appetite, hematuria, rash, seizure, shortness of breath, syncope, weakness - Related Data Sexually active: Yes : 11 Para: 5 A: 6 (miscarriages) Previous Rx's Medication Instructions Recorded Last Taken Type Butalb/Acetaminophen/Caffeine 1 cap PO Q8HR PRN #10 cap 08/21/18 Unknown Rx [Fioricet 50-300-40 mg CAP] Ibuprofen [Motrin] 600 mg PO Q8H PRN #20 tablet 08/25/18 Unknown Rx Docusate Sodium [Colace] 100 mg PO BID PRN #20 capsule 09/24/18 Unknown Rx Ferrous Sulfate [Ferrous Sulfate 324 mg PO DAILY #30 tablet. 09/24/18 Unknown Rx 324 MG] HYDROcodone/APAP 5-325 [[place] 1 each PO Q6HR PRN #14 tablet 09/24/18 Unknown Rx 5/325] Mag Hydrox/Aluminum Hyd/Simeth 20 ml PO QID PRN #1 bottle 09/24/18 Unknown Rx [Maalox Advanced Suspension] Omeprazole 40 mg PO DAILY #30 capsule. 09/24/18 Unknown Rx Ondansetron [Zofran Odt] 4 mg PO Q8HR PRN #20 tab.rapdis 09/24/18 Unknown Rx metroNIDAZOLE [Flagyl TAB] 500 mg PO Q12HR #14 tab 10/31/18 Unknown Rx Allergies Allergy/AdvReac Type Severity Reaction Status Date / Time carrot Allergy Anaphylaxis Verified 10/31/18 12:29 pollen extracts Allergy Itching Verified 10/31/18 12:29 ED Review of Systems ROS: Stated complaint: SORE THROAT/VAGINA ISSUES Other details as noted in HPI Constitutional: denies: chills, fever ENT: throat pain. denies: ear pain Respiratory: denies: cough, shortness of breath, wheezing Cardiovascular: denies: chest pain, palpitations Gastrointestinal: denies: abdominal pain, nausea, diarrhea Genitourinary: dysuria, discharge. denies: urgency Musculoskeletal: denies: back pain, joint swelling, arthralgia Skin: denies: rash, lesions Neurological: denies: headache, weakness, paresthesias Psychiatric: denies: anxiety, depression ED Past Medical Hx - Past Medical History Previous Medical History?: Yes Hx Hypertension: Yes Hx GERD: Yes Hx Headaches / Migraines: Yes - Surgical History Past Surgical History?: No - Social History Smoking Status: Never Smoker Substance Use Type: None - Medications Home Medications: Home Medications Medication Instructions Recorded Confirmed Last Taken Type Butalb/Acetaminophen/Caffeine 1 cap PO Q8HR PRN #10 cap 08/21/18 Unknown Rx [Fioricet 50-300-40 mg CAP] Ibuprofen [Motrin] 600 mg PO Q8H PRN #20 tablet 08/25/18 Unknown Rx Docusate Sodium [Colace] 100 mg PO BID PRN #20 capsule 09/24/18 Unknown Rx Ferrous Sulfate [Ferrous Sulfate 324 mg PO DAILY #30 tablet. 09/24/18 Unknown Rx 324 MG] HYDROcodone/APAP 5-325 [[place] 1 each PO Q6HR PRN #14 tablet 09/24/18 Unknown Rx 5/325] Mag Hydrox/Aluminum Hyd/Simeth 20 ml PO QID PRN #1 bottle 09/24/18 Unknown Rx [Maalox Advanced Suspension] Omeprazole 40 mg PO DAILY #30 capsule. 09/24/18 Unknown Rx Ondansetron [Zofran Odt] 4 mg PO Q8HR PRN #20 tab.yvonnedis 09/24/18 Unknown Rx metroNIDAZOLE [Flagyl TAB] 500 mg PO Q12HR #14 tab 10/31/18 Unknown Rx ED Physical Exam - General Limitations: No Limitations General appearance: alert, in no apparent distress - ENT ENT exam: Present: mucous membranes moist, TM's normal bilaterally, normal external ear exam. Absent: normal orophraynx (erythatmous enlarged tonsils with with exudate, uvula midline.) - Neck Neck exam: Present: normal inspection - Respiratory Respiratory exam: Present: normal lung sounds bilaterally. Absent: respiratory distress - Cardiovascular Cardiovascular Exam: Present: regular rate, normal rhythm. Absent: systolic murmur, diastolic murmur, rubs, gallop - GI/Abdominal GI/Abdominal exam: Present: soft, normal bowel sounds. Absent: distended, tenderness, guarding, rebound, rigid - External exam: Present: normal external exam Speculum exam: Present: vaginal discharge (malodorous greenish-yellow discharge). Absent: erythema, cervical discharge, vaginal bleeding, foreign body, tissue, laceration Bi-manual exam: Present: cervical motion tendernes - Back Exam Back exam: Absent: CVA tenderness (R), CVA tenderness (L) - Neurological Exam Neurological exam: Present: alert, oriented X3 - Psychiatric Psychiatric exam: Present: normal affect, normal mood - Skin Skin exam: Present: warm, dry, intact, normal color. Absent: rash ED Course Vital Signs 10/31/18 12:29 Temperature 98.1 F Pulse Rate 91 H Respiratory 18 Rate Blood Pressure 129/75 [Right] O2 Sat by Pulse 100 Oximetry ED Medical Decision Making - Lab Data Lab Results 10/31/18 10/31/18 Range/Units 12:43 14:03 Urine Color Yellow (Yellow) Urine Turbidity Hazy (Clear) Urine pH 6.0 (5.0-7.0) Ur Specific [place] 1.015 (1.003-1.030) Urine Protein <15 mg/dl (Negative) mg/dL Urine Glucose (UA) Neg (Negative) mg/dL Urine Ketones Neg (Negative) mg/dL Urine Blood Neg (Negative) Urine Nitrite Neg (Negative) Urine Bilirubin Neg (Negative) Urine Urobilinogen < 2.0 (<2.0) mg/dL Ur Leukocyte Esterase Tr (Negative) Urine WBC (Auto) 2.0 (0.0-6.0) /HPF Urine RBC (Auto) 4.0 (0.0-6.0) /HPF U Epithel Cells (Auto) 6.0 (0-13.0) /HPF Urine Mucus 2+ /HPF Urine HCG, Qual Negative (Negative) Group A Strep Rapid Positive A (Negative) - Medical Decision Making This is a 33 y.o. female that presents with sore throat and vaginal discharge for 3 days. Patient examined by me and stable. No distress noted. Rapid strep obtained and positive for strep. Vitals stable. Obtained wet prep and gonorrhea and chlamydia via pelvic exam. Wet prep positive for clue cells and polymorphonuclear cells, negative yeast and Trichomonas. Patient agreed to be empirically treated for gonorrhea and chlamydia. Given bicillin I-A, azithromycin, and rocephin while in ER. Start metronidazole for bacterial vaginitis. Take Tylenol or ibuprofen for pain. She will follow up in 3-5 days for pending gonorrhea and chlamydia results. Discussed plan with patient and he agreed with plan to treat outpatient. Discharged home. Return to work tomorrow. Follow up with PCP in 48-72 hours. Critical care attestation.: If time is entered above; I have spent that time in minutes in the direct care of this critically ill patient, excluding procedure time. ED Disposition Clinical Impression: Vaginal discharge, Dysuria, Bacterial vaginitis, STD exposure, Sore throat, Streptococcal pharyngitis Disposition: DC-01 TO HOME OR SELFCARE Is pt being admited?: No Does the pt Need Aspirin: No Condition: Stable Instructions: Bacterial Vaginosis (ED), Safe Sex (ED), Sexually Transmitted Diseases (ED), Strep Throat (ED) Additional Instructions: Expect symptoms to improve within 3 or 4 days. There is no need for bed rest or isolation. Use Tylenol or ibuprofen for symptoms of sore throat, headache, and fever. Return to work in 24 hours of taking antibiotics. Continue safe intercourse. Follow up in 3-5 days for pending lab results. Follow up with Primary Care Provider in 48-72 hours. Prescriptions: metroNIDAZOLE [Flagyl TAB] 500 mg PO Q12HR #14 tab Referrals: [facility] [Outside] - 3-5 Days [facility] [Outside] - 3-5 Days [facility] [Outside] - 3-5 Days [facility] [Outside] - 3-5 Days Forms: STI Treatment and Prevention Time of Disposition: 14:51
[2018-10-31] MEDS ORDERED: ZITHROMAX PO ONE (14:51)
[2018-10-31] MEDS ORDERED: ROCEPHIN IM ONE (14:51)
[2018-10-31] MEDS ORDERED: XYLOCAINE 1% MPF 5 mL INFILTRATI ONE (14:51)
[2018-10-31] MEDS ORDERED: BICILLIN L-A IM ONE (14:52)
== END 2018-10-31 15:23 | disposition home or self-care (01) ==
LOC: ED 12:23
DX: N76.0 Acute vaginitis (principal); J02.0 Streptococcal pharyngitis; I10 Essential (primary) hypertension; K21.9 Gastro-esophageal reflux disease without esophagitis; G43.909 Migraine, unspecified, not intractable, without status migrainosus
CPT/HCPCS: 81001; 81025; 87210; 87430; 87591; 96372; 99284; J0561; J0696